=== PATIENT | female | born 1990 | race Caucasian/White ===

== ENCOUNTER → 2017-12-22 08:43 | Outpatient (CLI) | payer SELFPAY ==
--- NOTE | 2017-12-22 08:51 | US_ITS ---
STUDY: ULTRASOUND OF THE FEMALE PELVIS - COMPLETE REASON FOR EXAM: Female, 27 years old. Abnormal uterine bleeding for one month. LMP: November 19, 2017. TECHNIQUE: Transabdominal and Transvaginal TECHNICAL QUALITY: Adequate. COMPARISON: None. FINDINGS: The uterus is retroverted and is in a midline position. The uterus measures 8.1 cm x 4.8 cm x 5.3 cm. There is a Nabothian cyst of the cervix. The endometrium is thickened and measures 19 mm in thickness, and is heterogeneous (striated). Small cystic changes are seen. There is no demonstrated endometrial mass. There is no demonstrated myometrial mass. I.U.D. - The patient does not have an I.U.D. The right ovary is visualized. The right ovary measures 3.6 cm x 3.2 cm x 2.8 cm. There is a 2.1 cm x 2.1 cm x 1.8 cm isoechoic nodular density in the central portion of the ovary with a focal anechoic central aspect. Follow-up is recommended. There is no visualized right adnexal mass or complex lesion. There is normal arterial and normal venous vascularity. The left ovary is visualized. The left ovary measures 3.5 cm x 2.1 cm x 1.9 cm. There is no left ovarian cyst or ovarian mass. There is no visualized left adnexal mass or complex lesion. There is normal arterial and normal venous vascularity. There is minimal fluid in the cul-de-sac. The pre void volume of the bladder was 541 ml. Polycystic ovary disease: No. US/Pelvic (Non ) IMPRESSION: Thickened heterogeneous endometrium. Echogenic nodule in the right ovary as described. Follow-up is recommended. Electronically Signed: Mandeep Mendes MD at 14:07 EDT Tel [phone], Service support ,
--- NOTE | 2017-12-22 08:52 | US_ITS ---
STUDY: ULTRASOUND OF THE FEMALE PELVIS - COMPLETE REASON FOR EXAM: Female, 27 years old. Abnormal uterine bleeding for one month. LMP: November 19, 2017. TECHNIQUE: Transabdominal and Transvaginal TECHNICAL QUALITY: Adequate. COMPARISON: None. FINDINGS: The uterus is retroverted and is in a midline position. The uterus measures 8.1 cm x 4.8 cm x 5.3 cm. There is a Nabothian cyst of the cervix. The endometrium is thickened and measures 19 mm in thickness, and is heterogeneous (striated). Small cystic changes are seen. There is no demonstrated endometrial mass. There is no demonstrated myometrial mass. I.U.D. - The patient does not have an I.U.D. The right ovary is visualized. The right ovary measures 3.6 cm x 3.2 cm x 2.8 cm. There is a 2.1 cm x 2.1 cm x 1.8 cm isoechoic nodular density in the central portion of the ovary with a focal anechoic central aspect. Follow-up is recommended. There is no visualized right adnexal mass or complex lesion. There is normal arterial and normal venous vascularity. The left ovary is visualized. The left ovary measures 3.5 cm x 2.1 cm x 1.9 cm. There is no left ovarian cyst or ovarian mass. There is no visualized left adnexal mass or complex lesion. There is normal arterial and normal venous vascularity. There is minimal fluid in the cul-de-sac. The pre void volume of the bladder was 541 ml. Polycystic ovary disease: No. US/Transvaginal Non- IMPRESSION: Thickened heterogeneous endometrium. Echogenic nodule in the right ovary as described. Follow-up is recommended. Electronically Signed: Mandeep Mendes MD at 14:07 EDT Tel [phone], Service support ,
== END ==
PROVIDERS: Family Provider Family Medicine; PCP Family Medicine; Visit Provider Obstetrics & Gynecology
DX: N39.3 Stress incontinence (female) (male) (principal)
CPT/HCPCS: 76830; 76856; 93976

== ENCOUNTER → 2017-12-23 10:36 | Outpatient (CLI) | payer SELFPAY ==
--- NOTE | 2017-12-23 10:15 | CER_PTH ---
PATIENT: BRYON LOWE LOC: [facility] U#:[id number] AGE/SX: 35/F ROOM: RE12/23/[address]: Dr. Iliana Clark MD : [id number] BED: DIS: SPEC #: [id number] RECD: 12/23/17 13:25 STATUS: SILVINA PETAR #: [id number] VIVIEN: 12/23/17 10:[address]: Iliana Clark DEPT: SURGICAL PATHOLOGY RECD BY: Adal Pereira Tissues: Uterine cervix, NOS Procedures: Surgery Specimen Level IV HEADER OPERATION: Cervical polypectomy PRE-OP DIAGNOSIS: Cervical polyp TISSUE SUBMITTED: Cervical polyp MICROSCOPIC DIAGNOSIS Cervical polyp, biopsy: Fragments of polyp with hemorrhagic infarction and associated acute and chronic inflammation and fibrinopurulent exudate. AM:julia 12/24/17 MICROSCOPIC DESCRIPTION Slides are reviewed. GROSS DESCRIPTION Received in fixative is one container labeled with the patient's name and designated polyp. The specimen consists of a pink, congested polyp measuring 1.5 x 1.5 x 0.5 cm. The specimen is bisected and submitted entirely in one cassette. / SJ:rg 12/23/17 TC:1 CPT: 21900
[2017-12-23 13:38] LABS: Hematocrit 41.1 % (37-47); Hemoglobin 13.6 g/dl (12.0-15.0); Mean Corp Hgb Conc 33.1 g/gl (32-36); Mean Corpuscular Hgb 29.4 pg (27.0-32.0); Mean Platelet Vol. 10.6 fl (6.2-12.0); Platelet Count 331 K/mm3 (150-450); RBC Distribution Width CV 12.4 % (11.6-14.6); Red Blood Count 4.62 M/mm3 (4.2-5.4); White Blood Count 6.1 K/mm3 (4.4-11.0)
[2017-12-23 13:39] LABS: Scan Indicated on CBC? Y/N NO
== END ==
PROVIDERS: Visit Provider Obstetrics & Gynecology
DX: N92.5 Other specified irregular menstruation (principal); N84.1 Polyp of cervix uteri
CPT/HCPCS: 36415; 84443; 85027; 88305

== ENCOUNTER → 2018-06-02 15:25 | Outpatient (CLI) | payer SELFPAY ==
[2018-06-08 13:25] LABS: HPV Reflexed? NOT INDICATED
== END ==
PROVIDERS: Visit Provider Obstetrics & Gynecology
DX: Z12.4 Encounter for screening for malignant neoplasm of cervix (principal)
CPT/HCPCS: 88175; G0145

== ENCOUNTER → 2020-06-06 18:06 | Outpatient (CLI) | payer SELFPAY | PROVIDERS: PCP Family Medicine; Visit Provider Family Medicine Geriatric Medicine | DX: Z11.59 Encounter for screening for other viral diseases (principal) | CPT/HCPCS: 87635; U0003 ==

== ENCOUNTER 2020-06-19 08:10 | Outpatient (RCR) | payer MEDICARE, SELFPAY ==
[2017-01-13 07:16] VITALS: BMI 27.6
== END 2020-06-20 23:59 ==
LOC: EMPH 08:10
PROVIDERS: PCP Family Medicine; Visit Provider Family Medicine Geriatric Medicine
DX: Z11.59 Encounter for screening for other viral diseases (principal)
CPT/HCPCS: 87635; U0003

== ENCOUNTER 2020-07-19 13:05 | Outpatient (RCR) | payer MEDICARE, SELFPAY ==
[2017-01-13 07:16] VITALS: BMI 27.6
== END 2020-07-21 23:59 ==
LOC: EMPH 13:05
PROVIDERS: PCP Family Medicine; Visit Provider Family Medicine Geriatric Medicine
DX: Z03.818 Encounter for observation for suspected exposure to other biological agents ruled out (principal)
CPT/HCPCS: 87426

== ENCOUNTER 2020-08-15 10:14 | Outpatient (RCR) | payer MEDICARE, SELFPAY ==
[2017-01-13 07:16] VITALS: BMI 27.6
== END 2020-08-20 23:59 ==
LOC: EMPH 10:14
PROVIDERS: PCP Family Medicine; Visit Provider Family Medicine Geriatric Medicine
DX: Z03.818 Encounter for observation for suspected exposure to other biological agents ruled out (principal)
CPT/HCPCS: 87426

== ENCOUNTER → 2020-08-31 13:43 | Outpatient (CLI) | payer SELFPAY ==
[2020-09-05 11:35] LABS: HPV Reflexed? NOT INDICATED
== END ==
PROVIDERS: PCP Family Medicine; Visit Provider Student in an Organized Health Care Education/Training Program
DX: Z12.4 Encounter for screening for malignant neoplasm of cervix (principal)
CPT/HCPCS: 88175; G0145

== ENCOUNTER 2020-09-17 15:58 | Outpatient (RCR) | payer MEDICARE, SELFPAY ==
[2017-01-13 07:16] VITALS: BMI 27.6
== END 2020-09-20 23:59 ==
LOC: EMPH 15:58
PROVIDERS: PCP Family Medicine; Visit Provider Family Medicine Geriatric Medicine
DX: Z03.818 Encounter for observation for suspected exposure to other biological agents ruled out (principal)
CPT/HCPCS: 87426

== ENCOUNTER → 2020-09-20 13:47 | Outpatient (CLI) | payer SELFPAY ==
[2017-01-13 07:16] VITALS: BMI 27.6
--- NOTE | 2020-09-20 13:51 | US_ITS ---
STUDY: ULTRASOUND OF THE FEMALE PELVIS - COMPLETE REASON FOR EXAM: Female, 30 years old. RLQ PELVIC PAIN LMP: 07/05/2020 TECHNIQUE: Transabdominal TECHNICAL QUALITY: Adequate. COMPARISON: 12/22/2017 FINDINGS: The uterus is retroflexed and is in a midline position. The uterus measures 10.0 x 6.3 x 5.0 cm. Normal uterine cervix. The endometrium measures 16 mm in thickness, and is hyperechoic. There is no demonstrated endometrial mass. There is no demonstrated myometrial mass. I.U.D. - The patient does not have an I.U.D. The right ovary is visualized. The right ovary measures 4.5 x 1.9 x 1.8 cm. There is no right ovarian cyst or ovarian mass. There is no visualized right adnexal mass or complex lesion. There is normal arterial and normal venous vascularity. The left ovary is visualized. The left ovary measures 3.9 x 2.9 x 2.6 cm. There is no left ovarian cyst or ovarian mass. There is no visualized left adnexal mass or complex lesion. There is normal arterial and normal venous vascularity. There is no fluid in the cul-de-sac. The pre void volume of the bladder was 228 ml. The post void volume of the bladder was ml. Polycystic ovary disease: No. US/Pelvic (Non ) IMPRESSION: Normal female pelvis. Electronically Signed: Adal Borges MD at 17:06 EST Tel , Service support ,
== END ==
PROVIDERS: PCP Family Medicine; Referring Provider Student in an Organized Health Care Education/Training Program; Visit Provider Student in an Organized Health Care Education/Training Program
DX: N83.201 Unspecified ovarian cyst, right side (principal)
CPT/HCPCS: 76856; 93976

== ENCOUNTER 2020-10-19 14:14 | Outpatient (RCR) | payer MEDICARE, SELFPAY ==
[2017-01-13 07:16] VITALS: BMI 27.6
== END 2020-10-21 23:59 ==
LOC: EMPH 14:14
PROVIDERS: PCP Family Medicine; Visit Provider Family Medicine Geriatric Medicine
DX: Z03.818 Encounter for observation for suspected exposure to other biological agents ruled out (principal)
CPT/HCPCS: 87426

== ENCOUNTER 2020-11-16 09:38 | Outpatient (RCR) | payer MEDICARE, SELFPAY ==
[2017-01-13 07:16] VITALS: BMI 27.6
== END 2020-11-18 23:59 ==
LOC: EMPH 09:38
PROVIDERS: PCP Family Medicine; Visit Provider Family Medicine Geriatric Medicine
DX: Z03.818 Encounter for observation for suspected exposure to other biological agents ruled out (principal)
CPT/HCPCS: 87426

== ENCOUNTER 2020-12-10 09:23 | Outpatient (RCR) | payer MEDICARE, SELFPAY ==
[2017-01-13 07:16] VITALS: BMI 27.6
== END 2020-12-19 23:59 ==
LOC: EMPH 09:23
PROVIDERS: PCP Family Medicine; Referring Provider Family Medicine Geriatric Medicine; Visit Provider Family Medicine Geriatric Medicine
DX: Z03.818 Encounter for observation for suspected exposure to other biological agents ruled out (principal)
CPT/HCPCS: 87426

== ENCOUNTER 2021-01-02 11:01 | Outpatient (RCR) | payer MEDICARE, SELFPAY ==
[2017-01-13 07:16] VITALS: BMI 27.6
== END 2021-01-18 23:59 ==
LOC: EMPH 11:01
PROVIDERS: PCP Family Medicine; Referring Provider Family Medicine Geriatric Medicine; Visit Provider Family Medicine Geriatric Medicine
DX: Z03.818 Encounter for observation for suspected exposure to other biological agents ruled out (principal)
CPT/HCPCS: 87426

== ENCOUNTER 2021-03-19 08:42 | Outpatient (RCR) | payer MEDICARE, SELFPAY ==
[2017-01-13 07:16] VITALS: BMI 27.6
== END 2021-03-20 23:59 ==
LOC: EMPH 08:42
PROVIDERS: Referring Provider Family Medicine Geriatric Medicine; Visit Provider Family Medicine Geriatric Medicine
DX: Z03.818 Encounter for observation for suspected exposure to other biological agents ruled out (principal)

== ENCOUNTER 2021-03-22 06:27 | Outpatient (RCR) | payer MEDICARE, SELFPAY ==
[2017-01-13 07:16] VITALS: BMI 27.6
== END 2021-04-20 23:59 ==
LOC: EMPH 06:27
PROVIDERS: PCP Family Medicine Geriatric Medicine; Referring Provider Family Medicine Geriatric Medicine; Visit Provider Family Medicine Geriatric Medicine
DX: Z03.818 Encounter for observation for suspected exposure to other biological agents ruled out (principal)
CPT/HCPCS: 87426

== ENCOUNTER 2021-05-21 13:39 | Outpatient (RCR) | payer MEDICARE, SELFPAY ==
[2017-01-13 07:16] VITALS: BMI 27.6
== END 2021-05-21 23:59 ==
LOC: EMPH 13:39
PROVIDERS: PCP Family Medicine Geriatric Medicine; Referring Provider Family Medicine Geriatric Medicine; Visit Provider Family Medicine Geriatric Medicine
DX: Z03.818 Encounter for observation for suspected exposure to other biological agents ruled out (principal)
CPT/HCPCS: 87426

== ENCOUNTER 2021-06-03 09:41 | Outpatient (RCR) | payer MEDICARE, SELFPAY | END 2021-06-20 23:59 | LOC: EMPH 09:41 | PROVIDERS: PCP Family Medicine Geriatric Medicine; Referring Provider Family Medicine Geriatric Medicine; Visit Provider Family Medicine Geriatric Medicine | DX: Z03.818 Encounter for observation for suspected exposure to other biological agents ruled out (principal) | CPT/HCPCS: 87426 ==

== ENCOUNTER 2021-07-29 09:15 | Outpatient (RCR) | payer MEDICARE, SELFPAY | END 2021-08-20 23:59 | LOC: EMPH 09:15 | PROVIDERS: PCP Family Medicine Geriatric Medicine; Visit Provider Family Medicine Geriatric Medicine | DX: Z03.818 Encounter for observation for suspected exposure to other biological agents ruled out (principal) | CPT/HCPCS: 87426 ==

== ENCOUNTER 2021-09-19 15:38 | Outpatient (RCR) | payer MEDICARE, SELFPAY | END 2021-09-20 23:59 | LOC: EMPH 15:38 | PROVIDERS: PCP Family Medicine Geriatric Medicine; Visit Provider Family Medicine Geriatric Medicine | DX: Z03.818 Encounter for observation for suspected exposure to other biological agents ruled out (principal) | CPT/HCPCS: 87635; U0003; U0005 ==

== ENCOUNTER 2021-10-21 09:10 | Outpatient (RCR) | payer OTHER, SELFPAY | END 2021-10-21 23:59 | LOC: EMPH 09:10 | PROVIDERS: PCP Family Medicine Geriatric Medicine; Visit Provider Family Medicine Geriatric Medicine | DX: Z03.818 Encounter for observation for suspected exposure to other biological agents ruled out (principal) | CPT/HCPCS: 87426 ==

== ENCOUNTER 2021-11-07 09:45 | Outpatient (RCR) | payer MEDICARE, SELFPAY | END 2021-11-18 23:59 | LOC: EMPH 09:45 | PROVIDERS: PCP Family Medicine Geriatric Medicine; Visit Provider Family Medicine Geriatric Medicine | DX: Z03.818 Encounter for observation for suspected exposure to other biological agents ruled out (principal) | CPT/HCPCS: 87426 ==

== ENCOUNTER → 2023-01-14 | Outpatient (CLI) | payer OTHER, SELFPAY ==
[2023-01-14 10:44] LABS: Hematocrit 37.7 % (37-47); Hemoglobin 11.5 g/dL (12.0-15.0); Mean Corp Hgb Conc 30.5 g/dL (32-36); Mean Corpuscular Volume 85.3 fL (81-99); Mean Platelet Vol. 9.9 fl (6.2-12.0); Platelet Count 453 K/mm3 (150-450); RBC Distribution Width CV 13.5 % (11.6-14.6); RBC Distribution Width SD 42.6 fl (35.1-43.9); Red Blood Count 4.42 M/mm3 (4.2-5.4); White Blood Count 7.6 K/mm3 (4.4-11.0)
[2023-01-14 11:33] LABS: Ferritin 5 ng/mL (8-252); Iron Binding Capacity,Total 456 ug/dL (250-450); Thyroid Stim Hormone (TSH) 1.29 uIU/mL (0.358-3.74)
== END | disposition home or self-care (01) ==
LOC: LAB 10:01
PROVIDERS: Referring Provider Obstetrics & Gynecology; Visit Provider Obstetrics & Gynecology
DX: N92.0 Excessive and frequent menstruation with regular cycle (principal)
CPT/HCPCS: 36415; 82728; 83550; 84443; 85027

== ENCOUNTER → 2023-01-21 | Outpatient (CLI) | payer OTHER, SELFPAY ==
--- NOTE | 2023-01-21 09:14 | US_ITS ---
STUDY: ULTRASOUND OF THE FEMALE PELVIS - COMPLETE REASON FOR EXAM: Female, 32 years old. MENORRHEA LMP: December 28, 2021. TECHNIQUE: Transvaginal TECHNICAL QUALITY: Adequate. COMPARISON: None. FINDINGS: The uterus is anteverted and is in a midline position. The uterus measures 8.6 cm x 7 cm x 5 cm. Normal uterine cervix. The endometrium measures 6.4 mm in thickness, and is hyperechoic. There is no demonstrated endometrial mass. There is no demonstrated myometrial mass. I.U.D. - The patient does not have an I.U.D. The right ovary is visualized. The right ovary measures 3.7 cm x 2.8 cm x 4.1 cm. A dominant follicle measuring 1.9 cm is seen within the ovary. There is no visualized right adnexal mass or complex lesion. There is normal arterial and normal venous vascularity. The left ovary is visualized. The left ovary measures 3.5 cm x 2.3 cm x 1.7 cm. There is no left ovarian cyst or ovarian mass. There is no visualized left adnexal mass or complex lesion. There is normal arterial and normal venous vascularity. There is no fluid in the cul-de-sac. US/Transvaginal Non- IMPRESSION: Dominant follicle seen in the right ovary. Electronically Signed: Mandeep Mendes MD at 14:36 EDT ,
== END | disposition home or self-care (01) ==
LOC: US 09:11
PROVIDERS: Referring Provider Obstetrics & Gynecology; Visit Provider Obstetrics & Gynecology
DX: N92.0 Excessive and frequent menstruation with regular cycle (principal)
CPT/HCPCS: 76830